=== PATIENT | female | born 1985 | race Caucasian/White ===

== ENCOUNTER 2024-05-03 01:07 | Day surgery (SDC) | payer BC, OTHER, SELFPAY ==
[2024-04-26 13:45] VITALS: BMI 28.3
--- NOTE | 2024-04-26 13:51 | PC.NURSE ---
Report to the Outpatient Waiting Room, entrance under the green pavilion located off [facility], at time _0600_ on date _[id number]_. Planned Procedure Time: _0730_.? Time changes happen often and if your time is changed the preop area will call you the afternoon before. - You and your visitor will be asked to self-screen and do not enter if you have any COVID symptoms. Please call surgeon if you need to reschedule. - A mask is optional within the hospital at this time. Patients may have clear liquids (water, carbonated beverages, clear teas, apple juice) until 3 hours prior to surgery with a maximum of 20 ounces. - No food from midnight until time of surgery and no smoking Take only the following medications with a SIP of water on the morning of surgery: ___None DO NOT STOP ANY OF YOUR OTHER PRESCRIPTION MEDICATIONS PRIOR TO SURGERY EXCEPT THE FOLLOWING Medications to discontinue per physician ___Vitamin d3 Date to take last qqqd__[phone]____Gyjvzvg says she's stopping Semaglutide and Phentermine prior to surgery. Please no make-up, nail nepali, hairspray, perfume, deodorant, or body powder the day of surgery.? No jewelry (including any body piercings) or valuables the day of surgery, leave them at home.? Please take a shower or bath the night before, or the morning of, surgery with an antibacterial soap.? Wear comfortable, loose fitting clothing.? - Jewelry must be removed prior to entering the operating room.? Rings and piercings that are not removed may be cut off. - The hospital will not accept responsibility for valuables.? - Please leave all valuables, including medications, at home the day of surgery. If you are going home after surgery, a licensed guard driver must drive you home.? - NO public transportation without another adult if you receive anesthesia. - We recommend that an adult stay with you for 24 hours following discharge. - We also recommend that you do not drive, make important decision, drink alcoholic beverages, or take any drugs that were not prescribed by your health care provider for at least 24 hours after your discharge time. Follow any additional instructions given to you from your surgeon. Telephone instructions given to __Sandi__and asked if any additional questions and then verbalized understanding. Patient advised to call surgeon office or pre surgery nurse liaison [phone] if any additional questions.
--- NOTE | 2024-05-02 09:12 | P.PNAN_ITS ---
Anes - Initial Pre Proc Eval Procedure: Operation Date: 05/03/24 07:30 Proposed Procedures p Hysteroscopy, Dilation and Curettage - Danitza Nobles MD Date/Time: 05/02/24 09:12 Surgeon: Danitza Nobles MD Pre Op Diagnosis: menorrhagia Patient Data Age: 39 Gender: F Height: 1.65 m Weight: 77.3 kg Allergies Allergy/AdvReac Type Severity Reaction Status Date / Time cetirizine AdvReac Unknown Palpitation Verified 05/03/24 06:46 s fexofenadine AdvReac Unknown Palpitation Verified 05/03/24 06:46 s pseudoephedrine AdvReac Unknown Palpitation Verified 05/03/24 06:46 s Home Medications Medication Instructions Recorded Confirmed Type alprazolam 0.5 mg tablet 0.5 mg PO HS PRN Insomnia 04/26/24 04/26/24 History cholecalciferol (vitamin D3) 25 25 mcg PO DAILY 04/26/24 05/03/24 History mcg (1,000 unit) capsule (Vitamin D3) phentermine 15 mg capsule 15 mg PO DAILY 04/26/24 04/26/24 History progesterone micronized 100 mg 100 mg PO HS 04/26/24 04/26/24 History capsule semaglutide (weight loss) 1 mg/0.5 1 mg subcut WEEKLY 04/26/24 04/26/24 History mL subcutaneous pen injector Patient hx anesthesia problems: none Family hx anesthesia problems: none Results Review: All pre-operative results and documents have been reviewed as part of the pre- operative evaluation. [facility] Social History Social History Smoking status: Never smoker Alcohol intake: current Drinks per week: 7 Living arrangements: with family Spiritual care concerns: No Anes - Eval Final PreProcedure Day of Procedure 05/02/24 09:12 Patient weight: overweight Heart: regular rate and rhythm Lungs: clear to auscultation and normal air movement Airway: Mallampati scale class II Neurological: alert and oriented Last oral intake: >/= 8 hours ASA classification: II Emergent: no Anesthetic plan: proceed Anesthesia type and monitoring: general GIVS and standard monitoring Results Review: All pre-operative results and documents have been reviewed as part of the pre- operative evaluation. Informed Consent: The patient's anesthetic plan and its attendant risks and benefits were discussed with the patient/family/POA. Questions were solicited and answers provided to the satisfaction of the patient/family/POA.
[2024-05-03 06:33] VITALS: BMI 28.3
[2024-05-03 06:35] VITALS: BP 118/79; PULSE 91; RESP 18; TEMP 36.2; O2SAT 99
[2024-05-03] MEDS: LACTATED RINGERS 1,000 ML 30 ML IV CONT (06:50)
[2024-05-03] MEDS: ACETAMINOPHEN 500 MG TABLET 1000 MG PO (06:56)
[2024-05-03 07:00] LABS: BEDSIDEPREGUCG Negative (Negative)
--- NOTE | 2024-05-03 07:09 | WPDHPUPDATE1 ---
History and Physical Update Update Date/Time: 05/03/24 07:09 History and Physical has been reviewed, including an updated exam of the patient. There are NO changes in the patient's condition. Risks, benefits, and alternatives have been discussed and questions answered. Patient agrees to proceed with procedure.
--- NOTE | 2024-05-03 07:09 | PM.HPGS ---
History of Present Illness History of Present Illness Consent: Risks, benefits, and alternatives have been discussed and questions answered. Patient agrees to proceed with procedure. Chief complaint: menorrhagia Narrative: Sandi Kebede is a 39 year old female With the onset irregular cycles every 2 to 5 weeks worsening over the past 10 months. In addition, cycles have been heavier passing small clots. The patient began seeing a functional doctor and was started on testosterone pellets and progesterone 100mg daily starting 01/13. It was recommended to undergo D&C hysteroscopy for evaluation. Risks of infection, bleeding perforation, and possible pathology are reviewed. Patient voices understanding and agrees to proceed. Review of Systems Review of Systems: not repeated day of surgery; patient states no changes in status PMFSH Past Medical History Medical History (Updated 05/03/24 @ 07:13 by Danitza Nobles MD) Migraine Surgical History Surgical History (Updated 05/03/24 @ 07:13 by Danitza Nobles MD) History of 3 sections History of bladder surgery bladder stimulator placed 2020 Status post abdominoplasty 2022 Status post breast augmentation and breast lift 2022 Social History Social History Smoking status: Never smoker Alcohol intake: current Drinks per week: 7 Living arrangements: with family Spiritual care concerns: No Meds Home Medications and Allergies Home Medications Medication Instructions Recorded Confirmed Type alprazolam 0.5 mg tablet 0.5 mg PO HS PRN Insomnia 04/26/24 04/26/24 History cholecalciferol (vitamin D3) 25 25 mcg PO DAILY 04/26/24 05/03/24 History mcg (1,000 unit) capsule (Vitamin D3) phentermine 15 mg capsule 15 mg PO DAILY 04/26/24 04/26/24 History progesterone micronized 100 mg 100 mg PO HS 04/26/24 04/26/24 History capsule semaglutide (weight loss) 1 mg/0.5 1 mg subcut WEEKLY 04/26/24 04/26/24 History mL subcutaneous pen injector Allergies Allergy/AdvReac Type Severity Reaction Status Date / Time cetirizine AdvReac Unknown Palpitation Verified 05/03/24 06:46 s fexofenadine AdvReac Unknown Palpitation Verified 05/03/24 06:46 s pseudoephedrine AdvReac Unknown Palpitation Verified 05/03/24 06:46 s Vital Signs Vital Signs - 24 hr 05/03/24 06:35 Temperature 97.2 F L Pulse Rate 91 Respiratory Rate 18 Blood Pressure 118/79 Pulse Oximetry 99 Oxygen Delivery Room Air Exam Const: General: healthy appearing and alert Orientation/consciousness: patient oriented x3 Resp: Effort & Inspection: normal respiratory effort : External Female Exam: normal external appearance Speculum Exam - Vagina: normal appearance of the vagina and normal vaginal discharge Speculum Exam - Cervix: normal appearance of the cervix Bimanual exam- vagina & uterus: uterine size normal and consistency normal Bimanual Exam- Adnexa, other: normal adnexae and No adnexal tenderness Neuro: General: patient oriented x3 Assessment and Plan Assessment and plan (1) Irregular menses: Code(s): N92.6 - Irregular menstruation, unspecified Status: Acute Assessment and Plan: plan to proceed with D&C hysteroscopy
[2024-05-03 07:41] VITALS: BP 99/52; PULSE 89; RESP 12; O2SAT 98
--- NOTE | 2024-05-03 07:42 | W.PM.PROC2 ---
Procedure Note - Detailed Date of Procedure 05/03/24 Pre-op Diagnosis metrorrhagia Post-op Diagnosis Same Procedure Performed D&C hysteroscopy Surgeon Danitza Nobles MD Anesthesia MAC Findings The cervix is stenotic. Uterus is very anteverted but appears grossly normal. Description of Procedure The patient was taken to the operating room and placed under anesthesia in the dorsal lithotomy position. [place] speculum was placed in the vagina and the cervix grasped on the anterior lip with a tenaculum. The internal cervical os is stenotic. The os Finders are used. The sound was then placed but did not proceed past 4cm. The cervix was dilated with Hegar to a 5. The hysteroscope was then used to hydrodissect into the cavity. The cavity was noted to be very anteverted. The hysteroscope was then removed and maintaining the same angle the sharp curette is used to curette the endometrium until a good uterine cry was noted in all areas. Minimal material was obtained. All instruments are removed. Sponge, needle, and instrument counts are correct per the OR staff. Patient was awakened from anesthesia and taken to recovery in stable condition. Estimated Blood Loss 5 Drains No Packing No Pathology Yes ( Endometrial curettings) Complications No immediate complications Condition Stable Disposition PACU
[2024-05-03 08:10] VITALS: BP 99/66; PULSE 68; RESP 16
[2024-05-03 08:40] VITALS: BP 100/60; PULSE 67; RESP 16
[2024-05-03 08:50] VITALS: BP 110/67; PULSE 68; RESP 16
== END 2024-05-03 09:06 | disposition home or self-care (01) ==
PROVIDERS: PCP Hospitalist; Visit Provider Obstetrics & Gynecology Gynecology
PROC: 0U5B8ZZ Destruction of Endometrium, Via Natural or Artificial Opening Endoscopic (ICD-10-PCS; CPT 58563; principal; 2024-05-03 07:30)
DX: N92.1 Excessive and frequent menstruation with irregular cycle (principal)
CPT/HCPCS: 58558; 88305; A9270; J1100; J2003; J2250; J2405; J2704; J3010; J7120